=== PATIENT | female | born 1935 | race Caucasian/White ===

== ENCOUNTER 2019-07-28 07:07 | Outpatient (CLI) | payer MEDICARE | END 2019-07-28 23:59 | disposition home or self-care (01) | LOC: CFH 07:07 → RAD 23:59 | PROVIDERS: ATTEND Internal Medicine Hematology & Oncology | DX: C50.812 Malignant neoplasm of overlapping sites of left female breast (principal); K76.0 Fatty (change of) liver, not elsewhere classified; N20.0 Calculus of kidney | CPT/HCPCS: 71046; 76700; 78306; A9503 ==